=== PATIENT | female | born 1950 | race Caucasian/White ===

== ENCOUNTER 2017-11-12 05:40 | Observation (INO) | payer BC ==
[2017-11-12] MEDS ORDERED: FAMOTIDINE 20 MG TAB PO ONE (05:51)
[2017-11-12] MEDS ORDERED: DEXAMETHASONE 4 MG/ML VIAL IVP ONE (05:51)
[2017-11-12] MEDS ORDERED: ACETAMINOPHEN 325 MG TAB PO ONE (05:51)
[2017-11-12] MEDS ORDERED: ceFAZolin 2 GM/SWFI 2 GM/20 ML SYR IVP ONE (05:51)
[2017-11-12] MEDS ORDERED: LR 1,000 ML IV ONE (05:52)
[2017-11-12] MEDS ORDERED: ROPIVACAINE 0.2% 80 MG, EPINEPHrine 0.2 MG, KETOROLAC TROMETHAMINE 30 MG in SYRINGE 0 ML IU ONE (06:00)
[2017-11-12] MEDS ORDERED: MIDAZOLAM 2 MG/2 ML VIAL IVP ONE (06:32)
--- NOTE | 2017-11-12 06:32 | PDANEPAE ---
ANE History of Present Illness 67 year old female (former smoker) with occasional GERD and previously fractured lumbar transverse process presents for left total knee arthroplasty. ANE Past Medical History - Cardiovascular History Hx Hypertension: No Hx Arrhythmias: No Hx Chest Pain: No Hx Coronary Artery / Peripheral Vascular Disease: No Hx CHF / Valvular Disease: No Hx Palpitations: No - Pulmonary History Hx COPD: No Hx Asthma/Reactive Airway Disease: No Hx Recent Upper Respiratory Infection: No Hx Oxygen in Use at Home: No Hx Sleep Apnea: No Sleep Apnea Screening Result - Last Documented: Negative - Neurologic History Hx Cerebrovascular Accident: No Hx Seizures: No Hx Dementia: No - Endocrine History Hx Diabetes: No Hypothyroid: No Hyperthyroid: No Obesity: no Endocrine History Comment: Overweight - Renal History Hx Renal Disorders: No - Liver History Hx Hepatic Disorders: No - Neurological & Psychiatric Hx Hx Neurological and Psychiatric Disorders: No - Cancer History Hx Cancer: No - Congenital Disorder History Hx Congenital Disorders: No - GI History GERD: mild Hx Gastrointestinal Disorders: Yes Gastrointestinal History Comment: OCCASIONAL HEARTBURN DIET RELATED - Other Health History Other Health History: OSTEOARTHRITIS. TRANSVERSE LUMBAR FX 10/2003 RESULT OF FALL - Chronic Pain History Chronic Pain: Yes (BILATERAL KNEES) - Surgical History Prior Surgeries: PHILLIP KNEE SCOPES. UTERINE ABLATION. APPENDECTOMY ANE Review of Systems Review of systems is: negative Review of Systems: - Exercise capacity Exercise capacity: >=4 METS METS (RN): 4 METS ANE Patient History - Allergies Allergies/Adverse Reactions: codeine Allergy (Severe, Verified 09/28/17 15:15) Rash - Home Medications Home medications: home medication list seen and reviewed Home Medications: Cholecalciferol Vit D3 [Vitamin D3 (*)] 6,000 units PO DAILY 09/28/17 [Last Taken 10/29/17] Herbals/Supplements -Info Only 1 ea PO DAILY 09/28/17 [Last Taken 10/29/17] celeCOXIB [Celebrex (*)] 200 mg PO HS 09/28/17 [Last Taken 11/11/17] - NPO status NPO Status: no food or drink >8 hours - Anes Hx Anes Hx: no prior problems - Smoking Hx Smoking Status: Former smoker Marijuana use: No - Alcohol Use Alcohol Use: Rarely - Family Anes Hx Family Anes Hx: neg - N/A ANE Labs/Vital Signs - Vital Signs Vital Signs: reviewed preoperatively; see RN documention for details Height: 162.05 cm Weight: 77.111 kg ANE Physical Exam - Airway Neck exam: FROM Mallampati Score: Class 2 Mouth exam: normal dental/mouth exam Mouth image: 1 - 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
[2017-11-12] MEDS ORDERED: THROMBIN (BOVINE) 5,000 UNIT VIAL TP ONE (06:52)
[2017-11-12] MEDS ORDERED: CALCIUM CHLORIDE 1 GM/10 ML INJ ONE (06:56)
[2017-11-12] MEDS ORDERED: ceFAZolin 1 GM/5 ML SYR ONE (06:57)
--- NOTE | 2017-11-12 07:05 | PDHPUP ---
History & Physical Update H&P update statement: This history and physical update is based on an assessment of the patient which was completed after admission or registration (within 24 hours), but prior to the surgery/procedure. H&P update: H&P reviewed & patient examined, no change in patient's condition since H&P completed
[2017-11-12] MEDS ORDERED: PROPOFOL/EMULSION 500 MG/50 ML BOTTLE IV ONE ×2 (07:09→08:44)
[2017-11-12] MEDS ORDERED: DEXAMETHASONE 4 MG/ML VIAL ONE (07:16)
[2017-11-12] MEDS ORDERED: ONDANSETRON 4 MG/2 ML VIAL ONE (07:16)
[2017-11-12] MEDS ORDERED: HYDROmorphONE/DILAUDID 2 MG/ML INJ IVP PRN (08:30)
[2017-11-12] MEDS ORDERED: epHEDrine SULFATE 10 MG/ML SYR IVP PRN (08:30)
[2017-11-12] MEDS ORDERED: ONDANSETRON 4 MG/2 ML VIAL IVP PRN ×2 (08:30→10:38)
[2017-11-12] MEDS ORDERED: PHENYLEPHRINE HCL 100 MCG/ML SYR IVP PRN (08:30)
[2017-11-12] MEDS ORDERED: LR 500 ML IV PRN (08:30)
[2017-11-12] MEDS ORDERED: NALOXONE HCL 0.4 MG/ML INJ IVP PRN (08:30)
[2017-11-12] MEDS ORDERED: fentaNYL 100 MCG/2 ML INJ IVP PRN (08:30)
[2017-11-12] MEDS ORDERED: PHENYLEPHRINE HCL 100 MCG/ML SYR ONE ×2 (08:47)
[2017-11-12] MEDS ORDERED: ROPIVACAINE HCL 150 MG/30 ML INJ ONE (08:53)
[2017-11-12] MEDS ORDERED: PROPOFOL 200 MG/20 ML VIAL ONE (10:03)
--- NOTE | 2017-11-12 10:36 | POSTOPPROG ---
Post Op Note Date of Operation: 11/12/17 Surgeon: Janeth Moore Machine Maintenance Repairer: Ayah Davis Anesthesiologist: Anesthesia: Spinal Pre-op Diagnosis: left knee osteoarthritis Post-op Diagnosis: left knee osteoarthritis Indication: left knee pain Procedure: left TKA Inf/Abcess present in the surg proc area at time of surgery?: No EBL: 50-100 Complications: none
[2017-11-12] MEDS ORDERED: METOCLOPRAMIDE 10 MG/2 ML VIAL IVP PRN (10:38)
[2017-11-12] MEDS ORDERED: BISACODYL 10 MG SUPP PR PRN (10:38)
[2017-11-12] MEDS ORDERED: PROMETHAZINE HCL 25 MG/ML INJ IVP PRN (10:38)
[2017-11-12] MEDS ORDERED: POLYETHYLENE GLYCOL 3350 17 GM PKT PO PRN (10:38)
[2017-11-12] MEDS ORDERED: LACTULOSE 20 GM/30 ML UDCUP PO PRN (10:38)
[2017-11-12] MEDS ORDERED: CYCLOBENZAPRINE 10 MG TAB PO PRN (10:38)
[2017-11-12] MEDS ORDERED: DIPHENOXYLATE/ATROPINE LOMOTIL 1 TAB PO PRN (10:38)
[2017-11-12] MEDS ORDERED: MAGNESIUM HYDROXIDE 30 ML UDCUP PO PRN (10:38)
[2017-11-12] MEDS ORDERED: diphenhydrAMINE 25 MG CAP PO PRN (10:38)
[2017-11-12] MEDS ORDERED: ONDANSETRON DISINTEGRATING 4 MG TAB PO PRN (10:38)
[2017-11-12] MEDS ORDERED: PROMETHAZINE HCL 25 MG SUPPR PR PRN (10:38)
--- NOTE | 2017-11-12 10:38 | SOAPPROG ---
SOAP Progress Note Assessment/Plan: Assessment/Plan: 67y/o female s/p left TKA - stable and doing well - orders as written - active care system for DVT prevention; ASA starts tomorrow - xrays pending - PT/OT, no knee flexion beyond 90 degrees - anticipate dc home tomorrow pending clinical course - call with issues or concerns 11/12/17 10:36 Subjective: Doing well Objective: Vital Signs Temp Pulse Resp BP Pulse Ox 36.7 C 84 16 131/66 H 94 10/02/17 11:20 10/02/17 11:20 10/02/17 11:20 10/02/17 11:20 10/02/17 11:20 NAD, no distress EOMi, face symmetric MAEx4 incision clean, dressed ICD10 Worksheet Patient Problems: Problems Problem Status Onset Osteoarthritis, knee Acute - ICD10 Problem Qualifiers (1) Osteoarthritis, knee
[2017-11-12] MEDS ORDERED: LR 1,000 ML IV SCH (11:00)
[2017-11-12] MEDS ORDERED: fentaNYL 100 MCG/2 ML INJ ONE (11:10)
[2017-11-12] MEDS: ACETAMINOPHEN 325 MG TAB PO SCH ×3 (12:20→23:25)
[2017-11-12] MEDS ORDERED: ceFAZolin 2 GM/DEXTROSE 100 ML IV SCH (14:00)
[2017-11-12] MEDS: ceFAZolin 2 GM/SWFI 2 GM/20 ML SYR IVP SCH ×2 (14:30→21:27)
--- NOTE | 2017-11-12 18:08 | POSTANESTH ---
Post Anesthetic Evaluation Cardiovascular Status: Normal, Stable, Similar to Pre-Op Cond Respiratory Status: Normal, Stable, Similar to Pre-op Cond. Level of Consciousness/Mental Status: Can Participate in Eval, Alert and Oriented Pain Control: Adequate, Prn Tx Ordered Nausea/Vomiting Control: Adequate, Prn Tx Ordered Complications Possibly Related to Anesthesia: None Noted
[2017-11-12] MEDS: SENNOSIDES/DOCUSATE SODIUM TAB PO SCH (21:27)
[2017-11-12] MEDS: FAMOTIDINE 20 MG TAB PO SCH (21:27)
[2017-11-13] MEDS: ACETAMINOPHEN 325 MG TAB PO SCH ×2 (05:09→11:38)
[2017-11-13] MEDS: oxyCODONE IR 5 MG TAB PO PRN ×2 (05:10→14:31)
[2017-11-13] MEDS: FAMOTIDINE 20 MG TAB PO SCH (08:39)
[2017-11-13] MEDS: SENNOSIDES/DOCUSATE SODIUM TAB PO SCH (08:40)
[2017-11-13] MEDS ORDERED: FERROUS SULFATE 140 MG TAB.ER PO SCH (09:00)
[2017-11-13] MEDS ORDERED: ASPIRIN 81 MG CHEWABLE TAB PO SCH (09:00)
[2017-11-13] MEDS ORDERED: PNEUMOC 13-VAL CONJ-DIP CRM/PF 0.5 ML SYR (PREVNAR 13) IM ONE (10:11)
[2017-11-13 13:30] VITALS: BP 113/60
--- NOTE | 2017-11-13 13:42 | SOAPPROG ---
SOAP Progress Note Assessment/Plan: Assessment/Plan: 67y/o female s/p left TKA POD#1 - stable and doing well, pain very well controlled - active care system for DVT prevention; ASA - xrays show good alignment - PT/OT, no knee flexion beyond 90 degrees - dc home with home health care today, follow-up on 11/26 - call with issues or concerns 11/13/17 13:40 Subjective: Pain well controlled. Did well with PT. Feels ready to go home. Objective: Vital Signs Temp Pulse Resp BP Pulse Ox 36.8 C 81 16 113/60 94 11/13/17 12:00 11/13/17 12:00 11/13/17 12:00 11/13/17 12:00 11/13/17 12:00 Laboratory Results 11/13/17 04:51 11/12/17 11/13/17 11/14/17 05:59 05:59 05:59 Intake Total 3100 200 Output Total 1620 Balance 1480 200 NAD, well appearing, no distress EOMi, face symmetric MAEx4 left knee extension 0, flexion 80 incision CDI, no erythema or active drainage; dressing changed ICD10 Worksheet Patient Problems: Problems Problem Status Onset Osteoarthritis, knee Acute - ICD10 Problem Qualifiers (1) Osteoarthritis, knee
--- NOTE | 2017-11-13 13:46 | PDIAF ---
- Diagnosis Diagnosis: left knee osteoarthritis Code Status: Full Code - Medication Management Discharge Medications: Medications to Continue on Transfer Cholecalciferol Vit D3 [Vitamin D3 (*)] 6,000 units PO DAILY 09/28/17 [Last Taken 10/29/17] Herbals/Supplements -Info Only 1 ea PO DAILY 09/28/17 [Last Taken 10/29/17] celeCOXIB [Celebrex (*)] 200 mg PO HS 09/28/17 [Last Taken 11/11/17] Acetaminophen [Tylenol 325mg (*)] 650 mg PO Q6HRS tab 11/13/17 [Last Taken Unknown] Aspirin [Aspirin 81mg (*)] 81 mg PO DAILY tab.chew 11/13/17 [Last Taken Unknown ] Ferrous Sulfate [Slow Fe 140 MG (*)] 140 mg PO DAILY tab.er 11/13/17 [Last Taken Unknown] oxyCODONE IR [Oxycodone Ir (*)] 5 - 10 mg PO Q3HRS PRN tab 11/13/17 [Last Taken Unknown] Discharge Medications: Refer to the Discharge Home Medication list for PRN reason. - Orders Services needed: Home Care, Physical Therapy, Occupational Therapy Home Care Face to Face: I certify that this patient was under my care and that I had the required [id number] encounter meeting the encounter requirements on the discharge day. My findings support the fact that the patient is homebound as defined in Home Care Face to Face Continued: CMS Chapter 7 Medicare Benefits Manual 30.1.1 , The condition of the patient is such that there exists a normal inability to leave home and consequently, leaving home would require a considerable and taxing effort. Diet Recommendation: no restrictions on diet Diet Texture: Regular Texture Diet Wound Care Instructions: keep incision clean and dry Sutures/[place] Site: will remove at post-op appointment Additional Instructions: - WBAT - keep incision clean and dry - follow-up on 11/26 - call with any new or worsening symptoms including increased pain, signs of infection, excessive drainage from your incision, calf tenderness, or any other concerning symptoms - Follow Up Care Current Providers and Referrals: Elidia Moreau MD [Primary Care Provider] -
--- NOTE | 2017-11-13 14:04 | ASMTCMCOM ---
CM Note CM Note Notes: Pt s/p L TKA. Pt medically stable for d/c with Family C PT/OT. Orders sent in [employer]. Pt address/phone verified. Date Signed: 11/13/2017 02:03 PM Electronically Signed By:KESHIA Pierce
--- NOTE | 2017-11-13 15:43 | ASDISCHSUM ---
Discharge Information Plan Status:Home with Home Health Medically Cleared to Leave: Discharge Date:11/13/2017 03:39 PM CM D/C Disposition:Home Health Service ADT D/C Disposition:[id number] Projected Discharge Date:11/13/2017 11:00 AM Transportation at D/C: Discharge Delay Reason: Follow-Up Date:11/13/2017 11:00 AM Discharge Slot: Final Diagnosis: Placement Information Referral Type:*Home Health Care Services Referral ID:[id number] Provider Name:[facility] Address 1:[address] [address] Address 2: City:[place] Selection Factors: State:[place] Patient Contact Information Contact Name:PRABHAKAR Relationship: Address:[address] City:[place] Alternate Phone: State/Zip Code:[place] [address] Email: Financial Information Financial Class:HMO and PPO Plans Primary Plan Desc:[employer] PLAN Primary Plan Number:[id number] Secondary Plan Desc: Secondary Plan Number: Assessment Information [facility] CM Progress Note CM Note CM Note Notes: Pt s/p L TKA. Pt medically stable for d/c with Family [facility] PT/OT. Orders sent in [facility]. Pt address/phone verified. Date Signed: 11/13/2017 02:03 PM Electronically Signed By:KESHIA Pierce Intervention Information
--- NOTE | 2017-11-26 13:13 | GOP ---
[f rep st] OPERATIVE REPORT DATE OF OPERATION: 11/12/2017 SURGEON: Janeth Moore MD SENIOR ADMINISTRATIVE SERVICES OFFICER: Carly Davis P.A.-Shruti. ANESTHESIA: Spinal with sedation. PREOPERATIVE DIAGNOSIS: Severe osteoarthritis, left knee. POSTOPERATIVE DIAGNOSIS: Severe osteoarthritis, left knee. PROCEDURE PERFORMED: Left total knee arthroplasty. FINDINGS: Preoperative x-rays of the patient's left knee demonstrated severe osteoarthritis. She edwards d tricompartmental involvement. At the time of surgery this finding was confirmed. The patient had near complete loss of the articular cartilage and marked peripheral osteophyte formation around the k nee. A cemented posterior stabilized Merritt [employer] Nephew Journey II total knee arthroplasty was utilize d. A size 6 left femoral component was cemented into place and a size 5 tibial base plate was utiliz ed. The 32 mm round patellar component was cemented and the 11 mm thick polyethylene insert was util ized in the metal backing of the tibia. Following implantation of the components the knee was stable to varus and valgus stress both in extension and 30 degrees of flexion. The patient had range of mo tion from 0-135 degrees of flexion on the table. The patella tracked well in the femoral groove. ESTIMATED BLOOD LOSS: Less than 100 cc. DESCRIPTION OF PROCEDURE: The patient was taken to the operating room and placed in supine position on the operating table. Following induction of adequate spinal anesthesia and sedation, the left leg was prepped and draped in usual sterile manner. The patient received 2 g of IV Ancef. The leg was elevated, exsanguinated and the tourniquet inflated to 275 mmHg. The DeMayo leg shelby was used thro ughout the procedure for positioning. A midline incision was made extending from just superior to th e patella distally to the tibial tubercle. Incision was carried down through the subcutaneous tissue to the retinaculum of the knee. A medial parapatellar arthrotomy was then performed. The patella w as everted laterally. Our attention was turned 1st to the patella. The thickness of the patella was determined and then a 9 mm thick cut was taken from the posterior aspect of the patella. The patell a was sized and then a metal protector was placed on the cut surface of the patella and it was placed in the lateral gutter. The knee was flexed up and the distal femoral drill hole was made. The dist al femoral cutting jig was placed on the distal femur and positioned and pinned. A +2 cut was taken from the distal femur. The femoral jig was removed and the femur was sized. A size 6 femoral compon ent was felt to be the best fit. The size 6 cutting guide was then placed on the distal femur and pi nned and the anterior, posterior and chamfer cuts were made. The femoral component was then placed o n the distal femur and the notch was cleared with the reamer followed by the box osteotome. The tria l femoral component was removed. Our attention was turned to the tibia. The knee was flexed up into full flexion and the posterior retractor was inserted. The tibia was pulled anteriorly. Again, int ramedullary referencing was utilized for the tibia. A drill was utilized to open up the tibial canal and then the intramedullary guide was inserted and the tibial cutting jig was positioned and pinned. The alignment was checked with the alignment guides. The tibial cut was made. The cutting jig was removed and then the lollipop was placed in the cut interval both in flexion and extension and the f lexion extension gaps were symmetrical. The tibia was then sized and the size 5 trial was pinned in place. The keel punch was utilized and then a trial reduction was performed. The femoral component was placed on the distal femur and the 10 and 11 mm polyethylene were trialed. The best fit was note d with the 11 mm thick polyethylene. All of the trial components were removed and the patella was pr epared by drilling the PEG holes. The bony surfaces of the knee were then thoroughly irrigated and d ried and the cement was mixed. The tibial component was cemented into place followed by the femoral component and the patellar component. All excess cement was removed from around the edges of the com ponents using Waldo elevators. The knee was brought into extension with 11 mm thick polyethylene catrina ac. Once the cement had hardened, the trial polyethylene was removed and the 11 mm cross-linked rossana yethylene insert was placed in the tibial tray. The knee was thoroughly irrigated out and the protective signal repairer helper ior capsule of the knee was injected with joint cocktail. The retinaculum of the knee was then close d using #2 FiberWire in a lounis-kt-vvukv fashion. The subcutaneous tissues were closed using 2-0 Vi cryl and the skin was closed using christa. Sterile dressings were applied. The patient tolerated t he procedure well. There were no complications. Estimated blood loss less than 100 cc. Final spong e and needle counts were correct. The patient was transported to the recovery room in good condition . /[id number]/MODL
--- NOTE | 2017-12-10 10:11 | GDS ---
[f rep st] DISCHARGE SUMMARY ADMISSION DIAGNOSIS: Left knee osteoarthritis. DISCHARGE DIAGNOSIS: Left knee osteoarthritis. HOSPITAL COURSE: The patient is a pleasant 67-year-old female who is well known to our service for o ngoing left knee pain and severe osteoarthritis. After careful decision-making and discussion, she e lected to proceed forth with a left total knee arthroplasty by Dr. Janeth Moore. The surgery was completed on November 12, 2017, and the patient tolerated it well without complication. She was transferre d to the floor, and PACU criteria was met. She ordered physical therapy and occupational therapy and continued to do well. Her pain was well managed. She was started on aspirin postoperatively and gi aminah Active Care System for DVT prevention. On November 13, 2017, she was in good and stable condition and ready for discharge home. She was given strict instructions to follow up on November 27, 2017, or sooner with any issues or changes. All of her questions were answered prior to discharge home. /[id number]/MODL
== END 2017-11-13 15:39 | disposition home health service (06) ==
LOC: F3N 05:40
PROVIDERS: ADMIT Orthopaedic Surgery; ATTEND Orthopaedic Surgery
PROC: 0SRD0J9 Replacement of Left Knee Joint with Synthetic Substitute, Cemented, Open Approach (ICD-10-PCS; principal; 2017-11-12 07:15)
DX: M17.12 Unilateral primary osteoarthritis, left knee (principal); E78.5 Hyperlipidemia, unspecified; E55.9 Vitamin D deficiency, unspecified; K21.9 Gastro-esophageal reflux disease without esophagitis; G43.909 Migraine, unspecified, not intractable, without status migrainosus; Z87.891 Personal history of nicotine dependence
CPT/HCPCS: 27447; 73560; 97116; 97161; 97165; 97530; G0378; C1713; J0171; J0690; J1100; J1885; J2250; J2370; J2405; J2704; J2795; J3010

== ENCOUNTER 2018-10-07 05:49 | Inpatient (IN) | payer BC, OTHER ==
[2018-10-07] MEDS ORDERED: ROPIVACAINE 0.2% 80 MG, EPINEPHrine 0.2 MG, KETOROLAC TROMETHAMINE 30 MG in SYRINGE 0 ML IU ONE (06:00)
[2018-10-07] MEDS ORDERED: TRANEXAMIC ACID 3,000 MG in NS (SYRINGE) 50 ML IRR ONE (06:00)
[2018-10-07] MEDS ORDERED: ceFAZolin 2 GM/DEXTROSE 100 ML IV ONE (06:04)
[2018-10-07] MEDS ORDERED: DEXAMETHASONE 4 MG/ML VIAL IVP ONE (06:04)
[2018-10-07] MEDS ORDERED: FAMOTIDINE 20 MG TAB PO ONE (06:04)
[2018-10-07] MEDS ORDERED: ACETAMINOPHEN 325 MG TAB PO ONE (06:04)
[2018-10-07] MEDS ORDERED: LR 1,000 ML IV ONE (06:06)
[2018-10-07] MEDS ORDERED: MIDAZOLAM 2 MG/2 ML VIAL IVP ONE (06:49)
--- NOTE | 2018-10-07 06:49 | PDANEPAE ---
ANE History of Present Illness OA here for R TKA ANE Past Medical History - Cardiovascular History Hx Hypertension: No Hx Arrhythmias: No Hx Chest Pain: No Hx Coronary Artery / Peripheral Vascular Disease: No Hx CHF / Valvular Disease: No Hx Palpitations: No - Pulmonary History Hx COPD: No Hx Asthma/Reactive Airway Disease: No Hx Recent Upper Respiratory Infection: No Hx Oxygen in Use at Home: No Hx Sleep Apnea: No Sleep Apnea Screening Result - Last Documented: Negative - Neurologic History Hx Cerebrovascular Accident: No Hx Seizures: No Hx Dementia: No - Endocrine History Hx Diabetes: No Endocrine History Comment: Overweight - Renal History Hx Renal Disorders: No - Liver History Hx Hepatic Disorders: No - Neurological & Psychiatric Hx Hx Neurological and Psychiatric Disorders: No - Cancer History Hx Cancer: No - Congenital Disorder History Hx Congenital Disorders: No - GI History Hx Gastrointestinal Disorders: Yes Gastrointestinal History Comment: Hietal hernia - Other Health History Other Health History: OSTEOARTHRITIS. TRANSVERSE LUMBAR FX 10/2003 RESULT OF FALL. cyst base of fingernail - Chronic Pain History Chronic Pain: Yes (back) - Surgical History Prior Surgeries: PHILLIP KNEE SCOPES. UTERINE ABLATION. APPENDECTOMY. L tka 2017 ANE Review of Systems Review of Systems: - Exercise capacity METS (RN): 4 METS ANE Patient History - Allergies Allergies/Adverse Reactions: codeine Allergy (Severe, Verified 09/11/18 16:20) Rash - Home Medications Home Medications: Herbals/Supplements -Info Only 1 ea PO DAILY 09/28/17 [Last Taken 2 Weeks Ago ~ 09/23/18] Cholecalciferol Vit D3 [Vitamin D3 2000 units tab (OTC)] 6,000 units PO DAILY [Last Taken 2 Weeks Ago ~09/23/18] Cbd Oil 10/07/18 [Last Taken 10/02/18] - NPO status NPO Since - Liquids (Date): 10/06/18 NPO Since - Liquids (Time): 22:00 NPO Since - Solids (Date): 10/06/18 NPO Since - Solids (Time): 20:00 - Anes Hx Anes Hx: no prior problems - Smoking Hx Smoking Status: Former smoker - Alcohol Use Alcohol Use: Occasionally - Family Anes Hx Family Anes Hx: none Family Hx Anesthesia Complications: none ANE Labs/Vital Signs - Vital Signs Blood Pressure: 141/96 Heart Rate: 87 Respiratory Rate: 18 O2 Sat (%): 96 Height: 161.29 cm Weight: 73.482 kg ANE Physical Exam - Airway Neck exam: FROM Mallampati Score: Class 2 Mouth exam: normal dental/mouth exam - Pulmonary Pulmonary: no respiratory distress, clear to auscultation - Cardiovascular Cardiovascular: regular rate and rhythym, no murmur, rub, or gallop - ASA Status ASA Status: II ANE Anesthesia Plan Anesthesia Plan: GA with mask, spinal Regional Anesthesia: single shot NB, adductor canal FNB Total IV Anesthesia: Yes
[2018-10-07] MEDS ORDERED: ceFAZolin 1 GM VIAL ONE (07:06)
[2018-10-07] MEDS ORDERED: TRANEXAMIC ACID 3,000 MG/50 ML BAG IRR ONE (07:06)
[2018-10-07] MEDS ORDERED: PROPOFOL/EMULSION 500 MG/50 ML BOTTLE IV ONE ×2 (07:07→08:37)
[2018-10-07] MEDS ORDERED: ceFAZolin 1 GM/5 ML SYR ONE (07:09)
[2018-10-07] MEDS ORDERED: MIDAZOLAM 2 MG/2 ML VIAL ONE (07:11)
[2018-10-07] MEDS ORDERED: ACETAMINOPHEN 500 MG TAB PO PRN (08:07)
[2018-10-07] MEDS ORDERED: HYDROCODONE/APAP 5/325 TAB PO PRN (08:07)
[2018-10-07] MEDS ORDERED: NALOXONE HCL 0.4 MG/ML INJ IVP PRN (08:07)
[2018-10-07] MEDS ORDERED: ONDANSETRON 4 MG/2 ML VIAL IVP PRN ×2 (08:07→10:20)
[2018-10-07] MEDS ORDERED: oxyCODONE IR 5 MG TAB PO PRN (08:07)
[2018-10-07] MEDS ORDERED: fentaNYL 100 MCG/2 ML INJ IVP PRN (08:07)
[2018-10-07] MEDS ORDERED: HYDROmorphONE/DILAUDID 2 MG/ML INJ IVP PRN (08:07)
[2018-10-07] MEDS ORDERED: PROPOFOL 200 MG/20 ML VIAL ONE (09:43)
[2018-10-07] MEDS ORDERED: POLYETHYLENE GLYCOL 3350 17 GM PKT PO PRN (10:20)
[2018-10-07] MEDS ORDERED: BISACODYL 10 MG SUPP PR PRN (10:20)
[2018-10-07] MEDS ORDERED: METOCLOPRAMIDE 10 MG/2 ML VIAL IVP PRN (10:20)
[2018-10-07] MEDS ORDERED: CYCLOBENZAPRINE 10 MG TAB PO PRN (10:20)
[2018-10-07] MEDS ORDERED: LACTULOSE 20 GM/30 ML UDCUP PO PRN (10:20)
[2018-10-07] MEDS ORDERED: MAGNESIUM HYDROXIDE 30 ML UDCUP PO PRN (10:20)
[2018-10-07] MEDS ORDERED: ONDANSETRON DISINTEGRATING 4 MG TAB PO PRN (10:20)
[2018-10-07] MEDS ORDERED: diphenhydrAMINE 25 MG CAP PO PRN (10:20)
[2018-10-07] MEDS ORDERED: PROMETHAZINE HCL 25 MG SUPPR PR PRN (10:20)
[2018-10-07] MEDS ORDERED: PROMETHAZINE HCL 25 MG/ML INJ IVP PRN (10:20)
[2018-10-07] MEDS ORDERED: DIPHENOXYLATE/ATROPINE LOMOTIL 1 TAB PO PRN (10:20)
--- NOTE | 2018-10-07 10:26 | SOAPPROG ---
SOAP Progress Note Assessment/Plan: Assessment/Plan: 68y/o female s/p right TKA - stable and doing well - anticipate 2 midnights given advanced osteoarthritis, advanced age - PT/OT - post-op xrays pending - ASA starts tomorrow; active care system - call with issues or concerns 10/07/18 10:25 Subjective: Knee hurts, otherwise doing well Objective: Vital Signs Temp Pulse Resp BP Pulse Ox 36.9 C 87 18 141/96 H 96 10/07/18 06:11 10/07/18 06:49 10/07/18 06:49 10/07/18 06:49 10/07/18 06:49 NAD, waking from anesthesia, no distress EOMi, face symmetric incision clean, dressed ICD10 Worksheet Patient Problems: Problems Problem Status Onset Osteoarthritis, knee Acute
--- NOTE | 2018-10-07 10:28 | POSTOPPROG ---
Post Op Note Date of Operation: 10/07/18 Surgeon: Janeth Moore Block Setter [place]: Ayah Davis PA-C Anesthesiologist: Dr. Charli Caro Anesthesia: Spinal Pre-op Diagnosis: right knee osteoarthritis Post-op Diagnosis: right knee osteoarthritis Indication: right knee pain Procedure: right TKA Inf/Abcess present in the surg proc area at time of surgery?: No EBL: 50-100 Complications: none
[2018-10-07] MEDS ORDERED: LR 1,000 ML IV SCH (10:30)
[2018-10-07] MEDS: oxyCODONE IR 5 MG TAB PO PRN ×4 (11:58→22:19)
[2018-10-07] MEDS: ceFAZolin 2 GM/DEXTROSE 100 ML IV SCH ×2 (13:26→22:18)
--- NOTE | 2018-10-07 14:48 | PDMN ---
Medical Necessity Medical [place] [facility] [place] 68yoF with PMHX arthritis, DM, GERD. reflux, thyroid OP R TKA- inpt per surg fax [place]
[2018-10-07] MEDS: ACETAMINOPHEN 325 MG TAB PO SCH ×2 (16:08→22:18)
[2018-10-07] MEDS: FAMOTIDINE 20 MG TAB PO SCH (22:19)
[2018-10-07] MEDS: SENNOSIDES/DOCUSATE SODIUM TAB PO SCH (22:20)
[2018-10-08] MEDS: oxyCODONE IR 5 MG TAB PO PRN ×3 (03:30→12:42)
[2018-10-08] MEDS: ACETAMINOPHEN 325 MG TAB PO SCH ×2 (03:31→10:48)
[2018-10-08] MEDS ORDERED: FERROUS SULFATE 325 MG TAB PO SCH (08:00)
[2018-10-08] MEDS: FAMOTIDINE 20 MG TAB PO SCH (08:19)
[2018-10-08] MEDS: SENNOSIDES/DOCUSATE SODIUM TAB PO SCH (08:19)
[2018-10-08] MEDS ORDERED: ASPIRIN 325 MG TAB PO SCH (09:00)
[2018-10-08 11:14] VITALS: BP 104/63
--- NOTE | 2018-10-08 13:10 | SOAPPROG ---
SOAP Progress Note Assessment/Plan: Assessment/Plan: 68y/o female s/p right TKA POD#1 - stable and doing well - PT/OT, cleared - post-op xrays stable - ASA; active care system - discharge home earlier than anticipated given great progression; discussed return precautions - call with issues or concerns 10/08/18 13:07 Subjective: Did well with walking and stairs today. Pain currently 01/15, getting Oxycodone now. Feels ready to go home Objective: Vital Signs Temp Pulse Resp BP Pulse Ox 37.0 C 75 17 104/63 90 L 10/08/18 11:12 10/08/18 11:12 10/08/18 11:12 10/08/18 11:12 10/08/18 11:12 Laboratory Results 10/08/18 04:40 10/07/18 10/08/18 10/09/18 05:59 05:59 05:59 Intake Total 4005 Output Total 1400 700 Balance 2605 -700 NAD, well appearing, no distress EOMi, face symmetric right knee extension full, flexion 85 incision CDI, no erythema or active drainage expected ecchymoses ICD10 Worksheet Patient Problems: Problems Problem Status Onset Osteoarthritis, knee Acute
--- NOTE | 2018-10-08 14:03 | ASMTLACE ---
MANASE Length of stay for Answers: 2 days current admission Acuity / Level of Answers: Yes Care: Did the patient have an inpatient admission? Comorbidities - select Answers: Opioid dependence all that apply / Chronic pain # of Emergency department Answers: 0 visits in the last 6 months Social determinants Answers: Mental health diagnosis (anxiety, depression, pers onality disorders, etc.) Score: 12 Date Signed: 10/08/2018 02:01 PM Electronically Signed By:KESHIA Pierce
--- NOTE | 2018-10-08 14:05 | ASMTCMCOM ---
CM Note CM Note Notes: Pt had planned knee surgery, resides with spouse. PT rec home/outpatient. Pt medically stable for d/c, no CM d/c needs identified. Date Signed: 10/08/2018 02:02 PM Electronically Signed By:KESHIA Pierce
--- NOTE | 2018-10-13 23:16 | GOP ---
[f rep st] OPERATIVE REPORT DATE OF OPERATION: 10/07/2018 SURGEON: Janeth Moore MD SOILS TECHNICIAN: Ayah Davis PA-C. ANESTHESIA: Spinal with general and adductor canal block. PREOPERATIVE DIAGNOSIS: Severe osteoarthritis, right knee. POSTOPERATIVE DIAGNOSIS: Severe osteoarthritis, right knee. PROCEDURE PERFORMED: Right total knee arthroplasty. FINDINGS: Preoperative x-rays of the patient's right knee demonstrated severe osteoarthritis. At th e time of surgery this finding was confirmed. The patient had tricompartmental arthritis. There was marked osteophyte formation around the periphery of the joint. The osteophytes obscured the normal anatomy. At the time of surgery, a cemented [employer] posterior stabilized Journey II total k nee arthroplasty was performed. A size 5 femoral component was cemented into place on the femoral si de and a size 5 tibial base plate was also cemented on the tibial side. A 10 mm thick cross-linked p olyethylene insert was utilized in the metal backing of the tibia. A 32 mm round patellar component was also utilized. Following implantation of the components, the patient achieved full extension and 130 degrees of flexion. The patella tracked well in the groove of the femoral component. The knee was stable in both extension and 30 degrees of flexion. ESTIMATED BLOOD LOSS: Less than 100 cc. DESCRIPTION OF PROCEDURE: The patient was taken the operating room, placed in supine position on the operating table. Following placement of a spinal block and induction of adequate general inhalation anesthesia, the knee and leg were prepped and draped in the usual sterile manner. The patient recei ange 2 g of IV Ancef. The leg was elevated and exsanguinated and the tourniquet inflated to 275 mmHg. The DeMayo leg shelby was used throughout the procedure for positioning. A midline incision was ma de extending from 2 fingerbreadths above the superior pole of the patella distally to the tibial tube rcle. The incision was carried down through the subcutaneous tissue to the retinaculum of the knee. A medial parapatellar arthrotomy was then performed. The patella was everted laterally. The thickn ess of the patella was measured. A 9 mm cut was taken from the back of the patella. The patient did have marked osteophyte formation around the periphery of the patella, so the large osteophytes were removed prior to resection of the bone. Once the bone cut was made, the cut surface was protected wi th a metal plate and the patella was placed in the lateral gutter. Our attention was then turned to the femur. The knee was flexed up and the intramedullary guide was utilized for the distal femoral c ut. A drill hole was placed in the distal femur and then the intramedullary guide was inserted and t he femoral component was pinned. A +2 cut was taken from the distal femur due to the patient's pre-e xisting flexion contracture. Again, the patient had marked osteophyte formation around the periphery of the femur, so the osteophytes were removed in order to position the guide accurately. Once the d istal femoral cut was made, the femur was sized. The sizing was between a 5 and 6 in the AP diameter , but was clearly an excellent fit for a size 5 in the medial-lateral plane so the size 5 cutting jig was chosen. It was shifted anteriorly to minimize the notching of the anterior femur. The cutting guide was placed on the distal femur and the anterior, posterior, and chamfer cuts were made. The tr ial femoral component was then placed on the distal femur and a good fit was obtained. The notch was cleared with a reamer, followed by the box osteotome. The trial femoral component was removed and o ur attention was turned to the tibia. The tibia was retracted anteriorly with a posterior retractor. Again intramedullary referencing was utilized for the tibial component. The intramedullary guide w as inserted and then the tibial cutting jig was positioned based on the line which had been placed pr eviously with the lollipop spacer. The tibial cut was made. The lollipop spacer was utilized to lito ck the extension gap and it was satisfactory. It was also symmetrical with the flexion gap. While t he knee was extended, the laminar roof shingler was utilized to remove the remaining meniscus and to relea se the posterior capsule and the remaining posterior crucial ligaments. The knee was then flexed up and the tibia was sized. A size 5 tibial component was also chosen. It was pinned into place and th en the keel punch was utilized. A trial reduction was performed with the components and a size 9 and 10 polyethylene. The best fit was noted with a 10 mm thick polyethylene. The patella was sized and then drilled. All the trial components were removed and the bony surfaces were thoroughly irrigated and dried. The cement was mixed. The tibial component was cemented first, followed by the femur an d the patella. Excess cement was removed from around the edges of the components. Once the componen ts were in place, a 10 mm thick polyethylene spacer was placed in the tibial backing. The knee was b rought into extension. It was held while the cement hardened. Once the cement was hardened, the kne e was flexed back up and the polyethylene was removed and replaced with the cross-linked polyethylene insert. The knee was taken through range of motion and excellent stability was noted and satisfacto ry patellar tracking was also noted. The wound was thoroughly irrigated and then the retinaculum of the knee was closed using #2 FiberWire in a [id number] fashion. Prior to implantation of the co mponents, the posterior capsule was injected with joint cocktail and tranexamic acid. The subcutaneo us tissue was closed using 2-0 Vicryl and skin closed using christa. Sterile dressings were applied. The patient tolerated the procedure well. There were no complications. Estimated blood loss less than 100 cc. Final sponge and needle counts were correct. The patient was transported to the [facility] room in good condition. /[id number]/MODL
--- NOTE | 2018-10-14 12:32 | GDS ---
[f rep st] DISCHARGE SUMMARY ADMISSION DIAGNOSIS: Right knee osteoarthritis. DISCHARGE DIAGNOSIS: Right knee osteoarthritis. HOSPITAL COURSE: This is a pleasant 68 year old female who is well known to our service from ongoing right knee pain. She had a history positive for previous left total knee arthroplasty and did well with that. After careful decision-making discussion, she elected to proceed forth with right total knee arthroplasty. The procedure was done on October 07, [address] Janeth Moore. The patient tolerated the procedure well without complication. When PACU criteria was met, she was transferred to the floor. There, she worked with Physical Therapy and Occupational Therapy and continued to improve. Her pain was well managed. She was in good and stable condition, ready for discharge home on October 08, 2018. She was given strict instruction to follow up on October 21 for routine followup or sooner with any issues or changes. All of her questions were answered prior to discharge home. /[id number]/MODL MTDD
== END 2018-10-08 13:57 | disposition home or self-care (01) | DRG 470 ==
LOC: F3N 05:49
PROVIDERS: ADMIT Orthopaedic Surgery; ATTEND Orthopaedic Surgery
PROC: 0SRC0J9 Replacement of Right Knee Joint with Synthetic Substitute, Cemented, Open Approach (ICD-10-PCS; principal; 2018-10-07 07:15)
DX: M17.11 Unilateral primary osteoarthritis, right knee (principal); E11.9 Type 2 diabetes mellitus without complications; K21.9 Gastro-esophageal reflux disease without esophagitis; E03.9 Hypothyroidism, unspecified
CPT/HCPCS: 97116-GP; 97161-GP; 97165-GO; 97530-GP; C1713; J0171; J0690; J1100; J1885; J2250; J2704; J2795